=== PATIENT | male | born 1955 | race Caucasian/White ===

== ENCOUNTER 2021-09-22 09:56 | Outpatient (CLI) | payer OTHER | END 2021-09-22 10:06 | disposition home or self-care (01) | LOC: RAD 09:56 | PROVIDERS: ATTEND Specialist | DX: J01.80 Other acute sinusitis (principal); J35.2 Hypertrophy of adenoids; K21.9 Gastro-esophageal reflux disease without esophagitis ==

== ENCOUNTER 2023-08-13 10:39 | Outpatient (CLI) | payer OTHER | END 2023-08-13 10:40 | disposition home or self-care (01) | LOC: NUCLEAR 10:39 | PROVIDERS: ATTEND Orthopaedic Surgery | DX: M25.562 Pain in left knee (principal); M25.561 Pain in right knee ==